=== PATIENT | female | born 1945 | race Caucasian/White ===

== ENCOUNTER 2018-09-04 10:20 | Outpatient (CLI) | payer MEDICARE ==
[2018-09-04 12:10] LABS: BASOPHILS # (AUTO) 0.06 x10^3/uL (0-0.1); BASOPHILS % (AUTO) 1 % (0-1); EOSINOPHILS # (AUTO) 0.31 x10^3/uL (0-0.4); EOSINOPHILS % (AUTO) 5 % (1-7); LYMPHOCYTES # (AUTO) 2.56 x10^3/uL (1-3.4); LYMPHOCYTES % (AUTO) 38 % (22-44); MD NO; MEAN CORPUSCULAR HEMOGLOBIN 31.9 pg (27.0-34.8); MEAN CORPUSCULAR HGB CONC 33.1 g/dL (32.4-35.8); MEAN CORPUSCULAR VOLUME 96.5 fL (80-100); MEAN PLATELET VOLUME 8.7 fL (7.4-10.4); MONOCYTES # (AUTO) 0.49 x10^3/uL (0.2-0.8); MONOCYTES % (AUTO) 7 % (2-9); NEUTROPHILS # (AUTO) 3.25 x10^3/uL (1.8-6.8); NEUTROPHILS % (AUTO) 49 % (42-75); PLATELET COUNT 251 x10^3/uL (130-400); RED BLOOD COUNT 4.49 x10^6/uL (3.82-5.3); RED CELL DISTRIBUTION WIDTH 12.8 % (9.6-15.2)
[2018-09-04] MEDS ORDERED: LOSA25TA25 PO (12:12)
[2018-09-04] MEDS ORDERED: TRIM100T PO (12:12)
[2018-09-04] MEDS ORDERED: LEVO112T2 PO (12:12)
[2018-09-04 12:18] LABS: ALANINE AMINOTRANSFERASE 36 U/L (12-78); ALBUMIN 4.1 g/dL (3.4-5.0); ANION GAP 5 mmol/L (5-15); CALCIUM 9.7 mg/dL (8.5-10.1); CHLORIDE 110 mmol/L (98-107); CREATININE 1.14 mg/dL (0.55-1.02)
[2018-09-04 12:18] LABS: MICROSCOPIC AUTO
[2018-09-04] MEDS ORDERED: FAMO20TA7 PO (12:18)
[2018-09-04] MEDS ORDERED: MULT1TAB9 PO (12:18)
[2018-09-04] MEDS ORDERED: CHOL200024 PO (12:18)
[2018-09-04] MEDS ORDERED: FLUT9.9S NAS (12:18)
[2018-09-04] MEDS ORDERED: CETI10TA24 PO (12:18)
[2018-09-04 12:21] LABS: ALKALINE PHOSPHATASE 71 U/L (45-117); BILIRUBIN,TOTAL 0.7 mg/dL (0.2-1.0); TOTAL PROTEIN 7.5 g/dL (6.4-8.2)
[2018-09-04 12:22] LABS: CULTURE INDICATED? YES
== END 2018-09-04 23:59 | disposition home or self-care (01) ==
LOC: STAR 10:20
PROVIDERS: ATTEND Orthopaedic Surgery
DX: R00.1 Bradycardia, unspecified (principal); M16.11 Unilateral primary osteoarthritis, right hip; Z96.642 Presence of left artificial hip joint; Z96.649 Presence of unspecified artificial hip joint; Z96.652 Presence of left artificial knee joint; Z88.5 Allergy status to narcotic agent; Z88.8 Allergy status to other drugs, medicaments and biological substances; K21.9 Gastro-esophageal reflux disease without esophagitis; M81.0 Age-related osteoporosis without current pathological fracture; E07.9 Disorder of thyroid, unspecified; R03.0 Elevated blood-pressure reading, without diagnosis of hypertension; R82.998 Other abnormal findings in urine
CPT/HCPCS: 36415; 80053; 81001; 85025; 87081; 87086; 93005

== ENCOUNTER 2018-09-10 07:30 | Inpatient (IN) | payer MEDICARE ==
[~2018-09-10] VITALS: Ht 162.6 cm; Wt 91.5 kg
[~2018-09-10 07:30] MED LIST: CETI10TA24 PO; CHOL200024 PO; FAMO20TA7 PO; FLUT9.9S NAS; LEVO112T2 PO; LOSA25TA25 PO; MULT1TAB9 PO; TRIM100T PO
[2018-09-22] MEDS ORDERED: KETOROLAC 60 MG/2 ML ONE (06:22)
[2018-09-22] MEDS ORDERED: TRANEXAMIC ACID 100 MG/ML, 10ML ONE (06:22)
[2018-09-22] MEDS ORDERED: EPINEPHRINE 1 MG/ML, 1ML ONE (06:23)
[2018-09-22] MEDS ORDERED: SODIUM CHLORIDE 0.9% 50 ML ONE (06:23)
[2018-09-22] MEDS ORDERED: ROPIvacaine/PF 0.2%, 20 ML ONE (06:23)
[2018-09-22] MEDS ORDERED: OxyconTIN ER 10 MG TAB.ER PO ONE (07:00)
[2018-09-22] MEDS ORDERED: GABAPENTIN 300 MG CAPSULE PO ONE (07:00)
[2018-09-22] MEDS ORDERED: ACETAMINOPHEN 500 MG TABLET PO ONE (07:00)
[2018-09-22] MEDS ORDERED: LACTATED RINGERS 1,000 ML IV SCH (07:03)
[2018-09-22] MEDS ORDERED: FENTANYL PF 250 MCG/5ML ONE (08:06)
[2018-09-22] MEDS ORDERED: PHENYLEPHRINE 10 MG/ML ONE (08:56)
[2018-09-22] MEDS ORDERED: SUCCINYLCHOLINE 20 MG/ML, 10ML ONE (08:56)
[2018-09-22] MEDS ORDERED: ROCURONIUM 10 MG/ML,10ML ONE (08:56)
[2018-09-22] MEDS ORDERED: PROPOFOL 10 MG/ML, 20ML ONE (09:57)
[2018-09-22] MEDS ORDERED: ONDANSETRON 2MG/ML, 2ML ONE (09:57)
[2018-09-22] MEDS ORDERED: DEXAMETHASONE 4 MG/ML, 1ML ONE (09:57)
[2018-09-22] MEDS ORDERED: CEFAZOLIN 1,000 MG ONE (09:57)
[2018-09-22] MEDS ORDERED: hydrALAzine 20 MG/ML, 1ML IV PRN (10:00)
[2018-09-22] MEDS ORDERED: ONDANSETRON 2MG/ML, 2ML IV PRN ×2 (10:00→10:30)
[2018-09-22] MEDS ORDERED: PROMETHAZINE 25 MG/ML, 1ML IV PRN (10:00)
[2018-09-22] MEDS ORDERED: FENTANYL PF 100 MCG/2ML IV PRN (10:00)
[2018-09-22] MEDS ORDERED: METOPROLOL 1 MG/ML, 5ML IV PRN (10:00)
[2018-09-22] MEDS ORDERED: OXYcodone 5 MG/5 ML ORAL.SOL UDC PO PRN (10:00)
[2018-09-22] MEDS ORDERED: ALBUTEROL/IPRATROPIUM 2.5MG/0.5MG, 3 ML NPPB PRN (10:00)
[2018-09-22] MEDS ORDERED: MEPERIDINE/PF 25MG/0.5ML IVPush PRN (10:00)
[2018-09-22] MEDS ORDERED: MIDAZOLAM 1 MG/ML, 2ML IV PRN (10:00)
[2018-09-22] MEDS ORDERED: PSYLLIUM PACKET PO PRN (10:30)
[2018-09-22] MEDS ORDERED: HYDROcodone/APAP 10/325 MG TABLET PO PRN (10:30)
[2018-09-22] MEDS ORDERED: ALUMINUM/MAG/SIMETHICONE 30 ML UDC PO PRN (10:30)
[2018-09-22] MEDS ORDERED: ZOLPIDEM 5MG TABLET PO PRN (10:30)
[2018-09-22] MEDS ORDERED: SCOPOLAMINE PATCH, 1.5MG PATCH.TD72 TD SCH (10:30)
[2018-09-22] MEDS: KETOROLAC 30 MG/1 ML IV SCH ×2 (10:30→18:35)
[2018-09-22] MEDS ORDERED: ONDANSETRON 4 MG TABLET PO PRN (10:30)
[2018-09-22] MEDS ORDERED: MAGNESIUM HYDROXIDE 8%, 30ML UDC PO PRN (10:30)
[2018-09-22] MEDS ORDERED: POLYETHYLENE GLYCOL 17 GM PACKET PO PRN (10:30)
[2018-09-22] MEDS ORDERED: BISACODYL 10 MG SUPP PR PRN (10:30)
[2018-09-22] MEDS ORDERED: SENNA/DOCUSATE TABLET PO PRN (10:30)
[2018-09-22] MEDS ORDERED: PROMETHAZINE 25 MG/ML, 1ML IM PRN (10:30)
[2018-09-22] MEDS ORDERED: DIPHENHYDRAMINE 50 MG CAPSULE PO PRN (10:30)
[2018-09-22] MEDS ORDERED: PROMETHAZINE 12.5 MG SUPP PR PRN (10:30)
[2018-09-22] MEDS ORDERED: HYDROmorphone 1 MG/ML, 1ML INJ IVPush PRN (10:30)
[2018-09-22] MEDS ORDERED: DIAZEPAM 5 MG TABLET PO PRN (10:30)
[2018-09-22] MEDS ORDERED: OXYcodone 5 MG/5 ML ORAL.SOL UDC ONE (10:44)
[2018-09-22] MEDS ORDERED: HYDROmorphone 2 MG/ML, 1ML ONE (10:44)
[2018-09-22] MEDS: HYDROmorphone 2 MG/ML, 1ML IVPush PRN ×2 (10:47→10:59)
[2018-09-22] MEDS ORDERED: TRANEXAMIC ACID 1,000 MG in SODIUM CHLORIDE 0.9% 100 ML IVPB ONE (11:00)
[2018-09-22] MEDS: CALCIUM/VITAMIN D3 250-125 TABLET PO SCH ×2 (12:00→17:51)
[2018-09-22] MEDS: ACETAMINOPHEN 500 MG TABLET PO SCH ×2 (15:08→20:46)
[2018-09-22] MEDS: CEFAZOLIN PMX 1GM/50ML 50 ML IVPB SCH (16:01)
[2018-09-22] MEDS: FERROUS SULFATE 325 MG TABLET PO SCH (17:51)
[2018-09-22] MEDS: D5%-0.45% NACL 1,000 ML IV SCH ×2 (18:24→18:35)
[2018-09-22 19:51] VITALS: BP 123/60
[2018-09-22] MEDS: FAMOTIDINE 20 MG TABLET PO SCH (20:46)
[2018-09-22] MEDS: DOCUSATE 100 MG CAPSULE PO SCH (20:46)
[2018-09-22 23:28] VITALS: BP 120/53
[2018-09-23] MEDS: CEFAZOLIN PMX 1GM/50ML 50 ML IVPB SCH (00:14)
[2018-09-23] MEDS: D5%-0.45% NACL 1,000 ML IV SCH ×2 (02:24→09:26)
[2018-09-23] MEDS: KETOROLAC 30 MG/1 ML IV SCH ×2 (02:34→11:30)
[2018-09-23 03:32] VITALS: BP 104/52
[2018-09-23] MEDS: ACETAMINOPHEN 500 MG TABLET PO SCH ×2 (03:34→08:42)
[2018-09-23] MEDS ORDERED: LEVOTHYROXINE 112 MCG TABLET PO SCH (06:00)
[2018-09-23] MEDS ORDERED: DEXAMETHASONE 4 MG/ML, 1ML IVPush ONE (06:00)
[2018-09-23 07:50] VITALS: BP 106/50
[2018-09-23] MEDS: CALCIUM/VITAMIN D3 250-125 TABLET PO SCH ×2 (08:41→12:00)
[2018-09-23] MEDS: FAMOTIDINE 20 MG TABLET PO SCH (08:42)
[2018-09-23] MEDS: DOCUSATE 100 MG CAPSULE PO SCH (08:42)
[2018-09-23] MEDS: FERROUS SULFATE 325 MG TABLET PO SCH (08:42)
[2018-09-23] MEDS ORDERED: MULTIVITAMINS/MINERALS TABLET PO SCH (09:00)
[2018-09-23] MEDS ORDERED: LOSARTAN 25MG TABLET PO SCH (09:00)
[2018-09-23] MEDS ORDERED: ASCORBIC ACID 500 MG TABLET PO SCH (09:00)
[2018-09-23] MEDS ORDERED: TRIMETHOPRIM 100 MG TABLET PO SCH (09:00)
[2018-09-23] MEDS ORDERED: OXYC5CAP2 PO (11:09)
[2018-09-23] MEDS ORDERED: ASPIRIN 81 MG TABLET EC PO SCH (18:00)
== END 2018-09-23 13:30 | disposition home or self-care (01) | DRG 470 ==
LOC: ORIP 09-22 05:54 → 4NOR 09-22 11:39 → DCLOUNGE 09-23 13:20
PROVIDERS: ADMIT Orthopaedic Surgery; ATTEND Orthopaedic Surgery
PROC: 0SR906A Replacement of Right Hip Joint with Oxidized Zirconium on Polyethylene Synthetic Substitute, Uncemented, Open Approach (ICD-10-PCS; principal; 2018-09-22 09:15)
DX: M16.11 Unilateral primary osteoarthritis, right hip (principal); K21.9 Gastro-esophageal reflux disease without esophagitis; I10 Essential (primary) hypertension; M81.0 Age-related osteoporosis without current pathological fracture; E66.9 Obesity, unspecified; E78.5 Hyperlipidemia, unspecified; Z90.710 Acquired absence of both cervix and uterus; Z88.6 Allergy status to analgesic agent; Z88.8 Allergy status to other drugs, medicaments and biological substances; Z87.891 Personal history of nicotine dependence; Z68.34 Body mass index [BMI] 34.0-34.9, adult
CPT/HCPCS: 36415; 72170; 85014; 85018; 86850; 86900; C1713; G0378; J0171; J0690; J1100; J1170; J1885; J2405; J2704; J2795; J3010; Q0162; C1776; J0330; J2370; J7120